=== PATIENT | female | born 1975 ===

== ENCOUNTER 2021-10-27 11:15 | Observation (INO) ==
[2021-10-27 13:27] LABS: BUN/Creatinine Ratio 18 (6-26); Blood Urea Nitrogen 12 mg/dL (6-20); Calcium 8.6 mg/dL (8.6-10.3); Carbon Dioxide 24 mEq/L (23-29); Chloride 107 mEq/L (98-107); Glucose 93 mg/dL (70-105); Osmolality,Calculated 285 (280-300); Potassium 3.7 mEq/L (3.5-5.1); Sodium 138 mEq/L (136-145); Troponin I < 0.03 ng/mL (< 0.04)
[2021-10-27 13:36] LABS: Influenza A PCR Negative (Negative); Influenza B PCR Negative (Negative); Resp. Syncytial Virus PCR Negative (Negative)
[2021-10-27 13:37] LABS: SARS-CoV-2 by PCR (In House) Negative (Negative)
[2021-10-27] MEDS ORDERED: 0.9 % Sodium Chloride 1,000 ML IV ONE (13:45)
[2021-10-27] MEDS ORDERED: Ondansetron 4 MG/2 ML VIAL IVP STA (13:45)
[2021-10-27 13:54] LABS: Basophils % 0.7 %; Eosinophils % 1.2 %; Immature Granulocytes % 0.5 % (0-4)
[2021-10-27 13:57] LABS: Basophils # 0.1 K/mcL (0.0-0.2); Eosinophils # 0.1 K/mcL (0.0-0.6); Hematocrit 18.4 % (35.3-44.9); Lymphocytes # 2.1 K/mcL (0.6-4.6); Lymphocytes % 21.2 %; Mean Corpuscular HGB Conc 28.3 g/dL (31.6-35.5); Mean Corpuscular Volume 74.2 fL (83.0-100.0); Mean Platelet Volume 10.8 fL (9.4-12.4); Monocytes # 0.7 K/mcL (0.0-1.3); Monocytes % 7.4 %; Neutrophils # 6.9 K/mcL (1.6-8.9); Nucleated Red Blood Cells 0.3 /100 WBC (0); Platelet Count 318 K/mcL (140-400); Red Blood Count 2.48 M/mcL (3.82-4.97); Red Cell Distribution Width 19.8 % (11.5-14.5)
[2021-10-27 13:59] LABS: Albumin 4.3 g/dL (3.5-5.7); Albumin/Globulin Ratio 1.6 (1.1-2.2); Bilirubin,Indirect 0.3 mg/dL (0.0-1.0); Bilirubin,Total 0.3 mg/dL (0.3-1.0); Globulin 2.7 g/dL (2.4-3.5)
[2021-10-27 14:02] LABS: Hemoglobin 5.2 g/dL (11.5-15.4); INR 1.1; Prothrombin Time 12.3 Seconds (9.4-12.1)
[2021-10-27 14:05] LABS: Activated Partial Thrombo Time 29.1 Seconds (26.0-36.0)
[2021-10-27 14:36] LABS: Immature Reticulocyte % 37.7 % (11.0-38.0); Retculocyte # 0.06 M/mcL (0.05-0.10); Reticulocyte % 2.3 % (1.6-2.8)
[2021-10-27] MEDS ORDERED: 0.9 % Sodium Chloride 250 ML ONE ×2 (15:18→22:24)
[2021-10-27] MEDS ORDERED: Melatonin 3 MG TABLET PO PRN (17:25)
[2021-10-27] MEDS ORDERED: Mag Hydrox/Al Hydrox/Simeth 30 ML UDC PO PRN (17:25)
[2021-10-27] MEDS ORDERED: MOM Conc 10 ML UD.LIQ PO PRN (17:25)
[2021-10-27] MEDS ORDERED: Ondansetron ODT 4 MG TAB.RAPDIS SL PRN (17:25)
[2021-10-27] MEDS ORDERED: Naloxone 0.4 MG/ML INJ IVP PRN (17:25)
[2021-10-27] MEDS ORDERED: 0.9 % Sodium Chloride w KCl 20 MEQ/1,000 ML MLS IVC SCH (17:30)
[2021-10-27] MEDS ORDERED: 0.9 % Sodium Chloride 1,000 ML IVC SCH (17:45)
[2021-10-27 19:14] LABS: Candida DNA Not Detected (Not Detect); Trichomonas DNA DETECTED (Not Detect)
[2021-10-27 19:15] LABS: Gardnerella DNA DETECTED (Not Detect)
[2021-10-27] MEDS: Nicotine 21 MG PATCH.TD24 TD SCH (20:12)
[2021-10-27 21:42] LABS: Hematocrit 17.4 % (35.3-44.9)
[2021-10-27 21:46] LABS: Hemoglobin 5.1 g/dL (11.5-15.4)
[2021-10-28] MEDS ORDERED: 0.9 % Sodium Chloride 250 ML ONE (02:30)
[2021-10-28] MEDS: Nicotine 21 MG PATCH.TD24 TD SCH (08:00)
[2021-10-28] MEDS ORDERED: Acetaminophen 325 MG TABLET PO PRN (08:44)
[2021-10-28 09:00] LABS: BUN/Creatinine Ratio 13 (6-26); Blood Urea Nitrogen 7 mg/dL (6-20); Calcium 7.8 mg/dL (8.6-10.3); Carbon Dioxide 22 mEq/L (23-29); Chloride 111 mEq/L (98-107); Glucose 80 mg/dL (70-105); Osmolality,Calculated 283 (280-300); Sodium 138 mEq/L (136-145)
[2021-10-28 09:06] LABS: Basophils # 0.1 K/mcL (0.0-0.2); Basophils % 0.9 %; Eosinophils # 0.2 K/mcL (0.0-0.6); Eosinophils % 3.5 %; Hematocrit 23.5 % (35.3-44.9); Hemoglobin 6.9 g/dL (11.5-15.4); Immature Granulocytes % 0.5 % (0-4); Immature Platelets 7.1 % (1.1-6.1); Lymphocytes # 1.7 K/mcL (0.6-4.6); Lymphocytes % 25.3 %; Mean Corpuscular HGB Conc 29.4 g/dL (31.6-35.5); Mean Corpuscular Hemoglobin 23.6 pg (28.0-33.3); Mean Corpuscular Volume 80.5 fL (83.0-100.0); Mean Platelet Volume 10.6 fL (9.4-12.4); Monocytes # 0.6 K/mcL (0.0-1.3); Monocytes % 8.3 %; Neutrophils # 4.1 K/mcL (1.6-8.9); Nucleated Red Blood Cells 0.3 /100 WBC (0); Platelet Count 197 K/mcL (140-400); Red Blood Count 2.92 M/mcL (3.82-4.97); Red Cell Distribution Width 20.4 % (11.5-14.5); Segmented Neutrophils % 61.5 %; White Blood Count 6.7 K/mcL (4.3-11.1)
[2021-10-28 11:11] VITALS: BP 124/81; PULSE 67; TEMP 97.4; O2SAT 100
== END 2021-10-28 16:35 | disposition short-term general hospital (02) ==
LOC: EMEROOARM 11:15 → 3NENU 11:15 → SUATTDRO 17:26 → 3NENU 18:24
PROVIDERS: ADMIT Internal Medicine; ATTEND Registered Nurse